=== PATIENT | female | born 1970 | race Caucasian/White ===

== ENCOUNTER 2016-08-07 15:10 | Emergency (ER) | payer OTHER ==
[~2016-08-07] VITALS: Ht 157.5 cm; Wt 75.3 kg
[~2016-08-07 15:10] MED LIST: ADVAIR 250/501 DISK IH; CIPRO500 MG PO; LORATADINE10 M2 PO; METFORMIN HCL500 MG PO; MOBIC7.5 MG PO; MOTRIN800 MG PO; NAPROXEN500 MG PO; NEURONTIN100 MG PO; NEXIUM20 MG PO; OMEPRAZOLE20 MG PO; PRAVACHOL40 MG PO; PREDNISONE20 MG PO; RANITIDINE HCL150 M1 PO; SYNTHROID100 MCG PO; SYNTHROID125 MCG PO; VENTOLIN HFA18 GM IH; VENTOLIN17 GM IH; Vicodin,Lortab 5/500 PO; ZANTAC150 MG PO
[2016-08-07] MEDS ORDERED: VICODIN 5-3001 EACH PO (15:40)
[2016-08-07] MEDS ORDERED: FIORICET 50-301 EACH PO (17:12)
[2016-08-07 17:18] VITALS: BP 156/83
== END 2016-08-07 17:18 | disposition home or self-care (01) ==
LOC: EME 15:10 → RME 15:10
DX: S00.83XA Contusion of other part of head, initial encounter (principal); S06.0X0A Concussion without loss of consciousness, initial encounter; Y04.8XXA Assault by other bodily force, initial encounter; Y92.29 Other specified public building as the place of occurrence of the external cause; Y07.9 Unspecified perpetrator of maltreatment and neglect; J45.909 Unspecified asthma, uncomplicated; E11.9 Type 2 diabetes mellitus without complications; K21.9 Gastro-esophageal reflux disease without esophagitis; E03.9 Hypothyroidism, unspecified; Z87.442 Personal history of urinary calculi; Z79.84 Long term (current) use of oral hypoglycemic drugs
CPT/HCPCS: 70450; 70486; 99281; 99284; J1885

== ENCOUNTER 2017-12-27 22:20 | Emergency (ER) | payer OTHER ==
[~2017-12-27] VITALS: Ht 157.5 cm; Wt 59.0 kg
[~2017-12-27 22:20] MED LIST changes: +FIORICET 50-301 EACH PO; +VICODIN 5-3001 EACH PO
[2017-12-27] MEDS ORDERED: BACTRIM,SEPT1 TABLET PO (23:23)
[2017-12-27] MEDS ORDERED: NORCO 5/3251 TABLET PO (23:23)
[2017-12-28 00:09] VITALS: BP 109/56
== END 2017-12-28 00:10 | disposition home or self-care (01) ==
LOC: EME 22:20
PROC: 0H98XZZ Drainage of Buttock Skin, External Approach (ICD-10-PCS; principal; 2017-12-27)
DX: L02.31 Cutaneous abscess of buttock (principal); Z88.5 Allergy status to narcotic agent
CPT/HCPCS: 99281; 99284; J3010

== ENCOUNTER 2017-12-31 22:44 | Emergency (ER) | payer OTHER ==
[~2017-12-31] VITALS: Ht 157.5 cm; Wt 59.4 kg
[~2017-12-31 22:44] MED LIST changes: +BACTRIM,SEPT1 TABLET PO; +NORCO 5/3251 TABLET PO
[2017-12-31 23:01] VITALS: BP 113/70
== END 2018-01-01 00:03 | disposition left against medical advice (07) ==
LOC: EME 22:44
DX: Z48.01 Encounter for change or removal of surgical wound dressing (principal); R50.9 Fever, unspecified; Z53.21 Procedure and treatment not carried out due to patient leaving prior to being seen by health care provider

== ENCOUNTER 2018-01-04 20:57 | Emergency (ER) | payer OTHER ==
[~2018-01-04] VITALS: Ht 157.5 cm; Wt 58.9 kg
[2018-01-04 21:40] LABS: HEMATOCRIT 38.3 % (36.0-46.0); HEMOGLOBIN 12.5 G/DL (11.9-15.5); MCH 28.2 PG (29.0-34.0); MCHC 32.6 G/DL (30.0-36.0); MCV 86.5 FL (83-99); PLATELET COUNT 522 K/uL (156-360); RBC DIS.WIDTH-CV 12.8 % (11.8-14.6); RED BLOOD COUNT 4.43 M/uL (3.80-5.20)
[2018-01-04 21:52] LABS: ALBUMIN 4.1 g/dL (3.2-4.8); CHLORIDE 104 mEq/L (99-109); POTASSIUM 4.9 mEq/L (3.7-5.4); SODIUM 137 mEq/L (136-147)
[2018-01-04 21:54] LABS: GLUCOSE 140 mg/dL (70-99)
[2018-01-04 21:56] LABS: TOTAL BILIRUBIN 0.2 mg/dL (0.0-1.0)
[2018-01-04 21:58] LABS: ALKALINE PHOSPHATASE 77 IU/L (3-129); CREATININE 0.9 mg/dL (0.6-1.3); GFR ESTIMATE (CALCULATED) > 59 mL/min/
[2018-01-04 21:59] LABS: UREA NITROGEN (BUN) 26 mg/dL (9-23)
[2018-01-04 22:00] LABS: AST (GOT) 9 IU/L (2-34)
[2018-01-04 22:01] LABS: ALT (GPT) 16 IU/L (3-49)
[2018-01-04 22:08] LABS: QUANTITATIVE HCG < 4.0 MIU/ML
[2018-01-04] MEDS ORDERED: CLEOCIN150 MG PO (22:51)
[2018-01-04] MEDS ORDERED: ULTRAM50 MG PO (22:51)
[2018-01-04 23:07] VITALS: BP 107/62
== END 2018-01-04 23:08 | disposition home or self-care (01) ==
LOC: EME 20:57
DX: R11.2 Nausea with vomiting, unspecified (principal); R10.9 Unspecified abdominal pain; T37.0X5A Adverse effect of sulfonamides, initial encounter; Z48.01 Encounter for change or removal of surgical wound dressing; L02.31 Cutaneous abscess of buttock; J45.909 Unspecified asthma, uncomplicated; E78.5 Hyperlipidemia, unspecified; E11.9 Type 2 diabetes mellitus without complications; Z79.84 Long term (current) use of oral hypoglycemic drugs; Z87.442 Personal history of urinary calculi; Z86.14 Personal history of Methicillin resistant Staphylococcus aureus infection
CPT/HCPCS: 80053; 84702; 85027; 99281; 99283